=== PATIENT | female | born 1960 | race Caucasian/White ===

== ENCOUNTER → 2016-06-18 | Outpatient (CLI) | payer OTHER ==
[2016-06-18 09:11] LABS: CHOLESTEROL/HDL RATIO 2.3
== END | disposition home or self-care (01) ==
LOC: LAB 08:22
PROVIDERS: ATTEND Nurse Practitioner Obstetrics & Gynecology
DX: E78.5 Hyperlipidemia, unspecified (principal)
CPT/HCPCS: 36415; 80061

== ENCOUNTER → 2016-12-01 | Outpatient (CLI) | payer OTHER ==
--- NOTE | 2016-12-01 15:16 | RAD ---
DATE: 12/01/2016 EXAM: DIGITAL SCREEN BILAT W/CAD HISTORY: Screening COMPARISON: 10/30/2015 This study was interpreted with the benefit of Computerized Aided Detection (CAD). FINDINGS: Breast Density: HETERO The breast parenchyma Is heterogeneiously dense, which could reduce sensitivity of mammography. Breast parenchyma level C there has not been a significant change in the appearance of the breasts compared to the previous exam. IMPRESSION: Benign finding BI-RADS CATEGORY: 2 BENIGN FINDING(S) RECOMMENDED FOLLOW-UP: 12M 12 MONTH FOLLOW-UP PQRS compliance statement: Patient information was entered into a reminder system with a target due date 12/01/2017 for the next mammogram. Mammography is a sensitive method for finding small breast cancers, but it does not detect them all and is not a substitute for careful clinical examination. A negative mammogram does not negate a clinically suspicious finding and should not result in delay in biopsying a clinically suspicious abnormality. "Our facility is accredited by the [employer] Mammography [employer]."
== END | disposition home or self-care (01) ==
LOC: MAMMO 14:33
PROVIDERS: ATTEND Nurse Practitioner Obstetrics & Gynecology
DX: Z12.31 Encounter for screening mammogram for malignant neoplasm of breast (principal)
CPT/HCPCS: G0202; 77067

== ENCOUNTER → 2016-12-23 | Outpatient (CLI) | payer OTHER ==
[2016-12-23 07:49] LABS: BASO % 1 % (0-3); EOS % 2 % (0-3); HEMATOCRIT 42.4 % (36.0-47.0); LYMPH # 1.3 x10^3/uL (1.0-4.8); LYMPH % 35 % (24-48); MEAN CORPUSCULAR HEMOGLOBIN 26 pg (25-35); MEAN CORPUSCULAR HGB CONC 33 g/dL (31-37); MEAN CORPUSCULAR VOLUME 79 fL (79-100); MONO % 10 % (0-9); NEUT % 53 % (31-73); PLATELET COUNT 181 x10^3/uL (140-400); RED BLOOD COUNT 5.35 x10^6/uL (3.50-5.40); RED CELL DISTRIBUTION WIDTH 13.4 % (11.5-14.5)
[2016-12-23 07:52] LABS: WHITE BLOOD COUNT 3.7 x10^3/uL (4.0-11.0)
== END | disposition home or self-care (01) ==
LOC: LAB 07:31
DX: K21.9 Gastro-esophageal reflux disease without esophagitis (principal)
CPT/HCPCS: 36415; 82306; 82607; 82728; 85027

== ENCOUNTER → 2017-01-21 | Day surgery (SDC) | payer OTHER ==
[~2017-01-21] MED LIST: CALC1TAB79 PO; HYDROmorphone 2 MG/ML VIAL IV PRN; IV RINGERS,LACTATED 1000ML 1,000 ML IV SCH; L.AC1CAP6 PO; LIDOCAINE 1% 1 ML SYRINGE. ID PRN; LIDOCAINE 2% PF Vial for OR 5 ML VIAL. ONE; MORPHINE SULFATE 2 MG/ML DISP.SYRIN. IV PRN; ONDANSETRON PF 4 MG/2 ML VIAL. IV PRN; PROCHLORPERAZINE 10 MG/2 ML VIAL. IV PRN; PROPOFOL 60 ML IV ONE; RANI150T2 PO; fentaNYL PF VIAL 100 MCG/2 ML VIAL IV PRN
[2017-01-21 08:12] VITALS: BP 117/68
--- NOTE | 2017-01-24 13:46 | PATHOLOGY ---
PATHOLOGY REPORT * * * * * * * * FINAL DIAGNOSIS: Esophageal biopsies, distal esophagus: - Segments of hyperplastic squamous esophageal mucosa, consistent with reflux esophagitis. COMMENT: Sections of the distal esophageal biopsy reveal segments of hyperplastic squamous esophageal mucosa. There are focal intraepithelial neutrophils and eosinophils. The findings are consistent with reflux esophagitis. There is no evidence of Kim's change, dysplasia, or malignancy. (JPM:pit; 01/24/2017) REPORT ELECTRONICALLY SIGNED BY: Avinash Carolina M.D. DATE/TIME: 01/24/2017 13:46 * * * * * * * * GROSS PATHOLOGY: Received in formalin labeled "Isaias Aguileraaine, distal esophageal biopsies," are multiple segments of lofton soft tissue measuring from less than 0.1 up to 0.2 cm in maximum dimension. The specimen is submitted entirely in cassette A1. (JPM; 01/21/17) INITIAL CPT CODE(S): A; 55806 Professional services performed [place] [address] Technical services performed by [facility] at [address] [place] [address]. SPECIMEN(S) RECEIVED: A.Distal esophagus biopsy CLINICAL HISTORY: GERD, colon screening PATIENT: BELA AGUILERA /AGE: 902/22/1960 (Age: 56) PATIENT #: [id number] ALT CASE #: SPECIMEN COLLECTION DATE: 01/21/2017 SPECIMEN RECEIVED DATE: 01/21/2017 [facility] - [address] [place] [address] - PHONE: [phone] * * * END OF REPORT * * *
== END | disposition home or self-care (01) ==
LOC: ENDOS 05:54
PROVIDERS: ATTEND Internal Medicine Gastroenterology
DX: Z12.11 Encounter for screening for malignant neoplasm of colon (principal); D64.0 Hereditary sideroblastic anemia; K21.0 Gastro-esophageal reflux disease with esophagitis; K29.50 Unspecified chronic gastritis without bleeding
CPT/HCPCS: 43239; 45378; 88305; J2704; J2001

== ENCOUNTER → 2017-03-07 | Outpatient (CLI) | payer OTHER ==
[2017-01-21 08:12] VITALS: BP 117/68
[~2017-03-07] MED LIST changes: -HYDROmorphone 2 MG/ML VIAL IV PRN; -IV RINGERS,LACTATED 1000ML 1,000 ML IV SCH; -LIDOCAINE 1% 1 ML SYRINGE. ID PRN; -LIDOCAINE 2% PF Vial for OR 5 ML VIAL. ONE; -MORPHINE SULFATE 2 MG/ML DISP.SYRIN. IV PRN; -ONDANSETRON PF 4 MG/2 ML VIAL. IV PRN; -PROCHLORPERAZINE 10 MG/2 ML VIAL. IV PRN; -PROPOFOL 60 ML IV ONE; -fentaNYL PF VIAL 100 MCG/2 ML VIAL IV PRN
[2017-03-07 15:14] LABS: BASO % 1 % (0-3); EOS % 2 % (0-3); HEMATOCRIT 42.6 % (36.0-47.0); HEMOGLOBIN 14.1 g/dL (12.0-15.5); LYMPH # 1.1 x10^3/uL (1.0-4.8); LYMPH % 22 % (24-48); MEAN CORPUSCULAR HEMOGLOBIN 27 pg (25-35); MEAN CORPUSCULAR HGB CONC 33 g/dL (31-37); MEAN CORPUSCULAR VOLUME 81 fL (79-100); MONO % 6 % (0-9); NEUT % 70 % (31-73); PLATELET COUNT 181 x10^3/uL (140-400); RED BLOOD COUNT 5.24 x10^6/uL (3.50-5.40)
--- NOTE | 2017-03-08 10:23 | PATHOLOGY ---
PATHOLOGY REPORT * * * * * * * * FINAL DIAGNOSIS: Endometrium, "endometrial biopsy": - Lytic menstrual-type endometrium with glandular and stromal breakdown without any evidence of hyperplasia or malignancy. ([facility]; 03/08/2017) REPORT ELECTRONICALLY SIGNED BY: Geoff Akbar M.D. DATE/TIME: 03/08/2017 10:22 * * * * * * * * GROSS PATHOLOGY: Received in formalin labeled "Bela Aguilera, endometrial biopsy," are several segments of red-lofton membranous tissue admixed with mucoid material measuring 1.5 x 1.5 x 0.3 cm in aggregate dimensions. The specimen is submitted entirely in cassette A1. ([facility]; 03/07/17) INITIAL CPT CODE(S): A; 32816 Professional services performed by [facility] [place] [address] Technical services performed by [facility] at [address] [place] [address]. SPECIMEN(S) RECEIVED: A.Endometrial biopsy CLINICAL HISTORY: Abnormal perimenopausal bleeding PATIENT: BELA AGUILERA /AGE: 902/22/1960 (Age: 57) PATIENT #: [id number] ALT CASE #: SPECIMEN COLLECTION DATE: 03/07/2017 SPECIMEN RECEIVED DATE: 03/07/2017 [facility] - [address] [place] [address] - PHONE: [phone] * * * END OF REPORT * * *
== END | disposition home or self-care (01) ==
LOC: SPEC 14:27
DX: N92.4 Excessive bleeding in the premenopausal period (principal)
CPT/HCPCS: 36415; 85025

== ENCOUNTER → 2018-01-27 | Outpatient (CLI) | payer OTHER ==
[2017-01-21 08:12] VITALS: BP 117/68
[2018-01-27 07:36] LABS: BASO % 1 % (0-3); EOS # 0.1 x10^3/uL (0.0-0.7); EOS % 2 % (0-3); HEMATOCRIT 43.1 % (36.0-47.0); HEMOGLOBIN 14.9 g/dL (12.0-15.5); LYMPH % 26 % (24-48); MEAN CORPUSCULAR HEMOGLOBIN 30 pg (25-35); MEAN CORPUSCULAR HGB CONC 35 g/dL (31-37); MEAN CORPUSCULAR VOLUME 85 fL (79-100); MONO # 0.4 x10^3/uL (0.0-1.1); MONO % 10 % (0-9); NEUT # 2.4 x10^3uL (1.8-7.7); NEUT % 62 % (31-73); PLATELET COUNT 181 x10^3/uL (140-400); RED BLOOD COUNT 5.07 x10^6/uL (3.50-5.40); RED CELL DISTRIBUTION WIDTH 12.5 % (11.5-14.5)
[2018-01-27 08:08] LABS: CREATININE 0.7 mg/dL (0.6-1.0); GFR 86.9; POTASSIUM 3.9 mmol/L (3.5-5.1)
[2018-01-27 08:10] LABS: CHOLESTEROL/HDL RATIO 2.7
== END | disposition home or self-care (01) ==
LOC: LAB 07:01
PROVIDERS: ATTEND Family Medicine
DX: Z01.419 Encounter for gynecological examination (general) (routine) without abnormal findings (principal); D50.0 Iron deficiency anemia secondary to blood loss (chronic); E78.00 Pure hypercholesterolemia, unspecified; Z88.8 Allergy status to other drugs, medicaments and biological substances
CPT/HCPCS: 36415; 80048; 80061; 84443; 85025

== ENCOUNTER 2019-06-12 17:31 | Emergency (ER) | payer OTHER ==
[~2019-06-12] VITALS: Ht 154.9 cm; Wt 46.7 kg
[2019-06-12 17:42] VITALS: BP 113/72
--- NOTE | 2019-06-12 18:08 | PHYS DOC ---
Past Medical History Past Medical History: No Pertinent History (SILVERIO JOSEPH APRN) Past Surgical History: No Surgical History (SILVERIO JOSEPH APRN) Alcohol Use: None Drug Use: None (SILVERIO JOSEPH APRN) Attending Signature I have participated in the care of this patient and I have reviewed and agree with all pertinent clinical information above including history, exam, and recommendations. (CATHY WRIGHT MD) Adult General Chief Complaint Chief Complaint: FEVER HPI HPI Patient is a 59 year old female who presents to the ED today with a productive cough, nasal congestion, bilateral ear pain, and a fever that began 3 days ago. Patient reports the has similar symptoms (SILVERIO JOSEPH APRN) Review of Systems Review of Systems Constitutional: Reports fever Eyes: Denies change in visual acuity, redness, or eye pain [] HENT: Reports nasal congestion and bilateral ear pain, denies sore throat [] Respiratory: Reports cough, denies shortness of breath [] Cardiovascular: No additional information not addressed in HPI [] GI: Denies abdominal pain, nausea, vomiting, bloody stools or diarrhea [] : Denies dysuria or hematuria [] Musculoskeletal: Denies back pain or joint pain [] Integument: Denies rash or skin lesions [] Neurologic: Denies headache, focal weakness or sensory changes [] All other systems were reviewed and found to be within normal limits, except as documented in this note. (SILVERIO JOSEPH APRN) Allergies Allergies Allergies Coded Allergies Type Severity Reaction Last Updated Verified No Known Drug Allergies 01/21/17 No (CATHY WRIGHT MD) Physical Exam Physical Exam Constitutional: Well developed, well nourished, no acute distress, non-toxic appearance. [] HENT: Normocephalic, atraumatic, bilateral external ears normal, oropharynx moist, no oral exudates, nose normal. [] Eyes: PERRLA, EOMI, conjunctiva normal, no discharge. [] Neck: Normal range of motion, no tenderness, supple, no stridor. [] Cardiovascular:Heart rate regular rhythm, no murmur [] Lungs & Thorax: Bilateral breath sounds clear to auscultation [] Abdomen: Bowel sounds normal, soft, no tenderness, no masses, no pulsatile masses. [] Skin: Warm, dry, no erythema, no rash. [] Back: No tenderness, no CVA tenderness. [] Extremities: No tenderness, no cyanosis, no clubbing, ROM intact, no edema. [] Neurologic: Alert and oriented X 3, normal motor function, normal sensory function, no focal deficits noted. [] Psychologic: Affect normal, judgement normal, mood normal. [] (SILVERIO JOSEPH APRN) Current Patient Data Vital Signs Vital Signs Date Time Temp Pulse Resp B/P (MAP) Pulse Ox O2 Delivery O2 Flow Rate FiO2 06/12/19 17:42 98.9 89 14 113/72 (86) 97 Room Air 98.9 (CATHY WRIGHT MD) Lab Values Laboratory Tests Test 06/12/19 17:44 Influenza Type A Antigen Positive (NEGATIVE) Influenza Type B Antigen Negative (NEGATIVE) (CATHY WRIGHT MD) Lab Values Laboratory Tests Test 06/12/19 17:44 Influenza Type A Antigen Positive (NEGATIVE) Influenza Type B Antigen Negative (NEGATIVE) (SILVERIO JOSEPH APRN) EKG EKG [] (SILVERIO JOSEPH APRN) Radiology/Procedures Radiology/Procedures [] (SILVERIO JOSEPH APRN) Course & Med Decision Making Course & Med Decision Making Pertinent Labs and Imaging studies reviewed. (See chart for details) This is a 59-year-old female patient presented to the ED today with productive cough, nasal congestion and bilateral ear pain, fever, symptoms began 3 days ago. (SILVERIO JOSEPH APRN) Dragon Disclaimer Dragon Disclaimer This electronic medical record was generated, in whole or in part, using a voice recognition dictation system. (SILVERIO JOSEPH APRN) Departure Departure Impression: Primary Impression: Cough Additional Impressions: Influenza A Fever Disposition: 01 HOME, SELF-CARE Condition: STABLE Referrals: Rock ARRIOLA MD (PCP) follow up with your doctor in 1-2 weeks Patient Instructions: Influenza A (H1N1) Additional Instructions: You tested positive for influenza A. Please take Tylenol/Motrin as needed for pain or fever. Please rest, push fluids, maintain good hygiene and follow-up with your doctor in 1-2 weeks Scripts Benzonatate (TESSALON PERLE) 100 Mg Capsule 1 CAP PO TID, #30 CAP Prov: SILVERIO JOSEPH APRN 06/12/19 Problem Qualifiers Additional Impressions: Fever Fever type: unspecified Qualified Codes: R50.9 - Fever, unspecified SILVERIO JOSEPH MINOO Jun 12, 2019 18:08 CATHY WRIGHT MD Jun 13, 2019 19:18
[2019-06-12 18:26] LABS: INFLUENZA A PATIENT POSITIVE (NEGATIVE); INFLUENZA B PATIENT NEGATIVE (NEGATIVE)
[2019-06-12] MEDS ORDERED: BENZ100C PO (18:50)
--- NOTE | 2019-06-12 20:52 | RAD ---
CHEST PA LATERAL Technique: PA and lateral views of the chest were obtained. Clinical History: Comparison: None. Findings: The heart and pulmonary vasculature appear within normal limits. There is vague patchy opacities in the lung bases. There is blunting of costophrenic angles. Impression: Vague basal infiltrates and tiny effusions could be early pneumonia. Electronically signed by: Esau Bender III, MD (06/12/2019 8:48 PM) [facility]
== END 2019-06-12 18:53 | disposition home or self-care (01) ==
LOC: ER 17:31
DX: J10.1 Influenza due to other identified influenza virus with other respiratory manifestations (principal); H92.03 Otalgia, bilateral; R50.9 Fever, unspecified; R05 Cough
CPT/HCPCS: 71046; 87804; 99285

== ENCOUNTER → 2020-07-23 | Outpatient (CLI) | payer OTHER ==
[~2020-07-23] MED LIST changes: +BENZ100C PO
--- NOTE | 2020-07-23 20:11 | RAD ---
DATE: 07/23/2020 EXAM: MAMMO YARITZA SCREENING BILATERAL HISTORY: Routine screening COMPARISON: 12/01/2016, 10/30/2015, 10/28/2014, 09/01/2011 This study was interpreted with the benefit of Computerized Aided Detection (CAD). Breast Density: DENSE The breast parenchyma is dense, which could reduce the sensitivity of mammography. Breast parenchyma level density D. FINDINGS: No suspicious mass, calcification, or architectural distortion in either breast. IMPRESSION: No evidence of malignancy. BI-RADS CATEGORY: 1 NEGATIVE RECOMMENDED FOLLOW-UP: 12M 12 MONTH FOLLOW-UP PQRS compliance statement: Patient information was entered into a reminder system with a target due date for the next mammogram. Mammography is a sensitive method for finding small breast cancers, but it does not detect them all and is not a substitute for careful clinical examination. A negative mammogram does not negate a clinically suspicious finding and should not result in delay in biopsying a clinically suspicious abnormality. "Our facility is accredited by the [employer] Mammography Program."
== END ==
LOC: MAMMO 11:01
PROVIDERS: ATTEND Obstetrics & Gynecology
DX: Z12.31 Encounter for screening mammogram for malignant neoplasm of breast (principal)
CPT/HCPCS: 77063; 77067

== ENCOUNTER → 2020-08-22 | Outpatient (CLI) | payer OTHER ==
[2020-08-22 07:51] LABS: BASO % 1 % (0-3); EOS # 0.1 x10^3/uL (0.0-0.7); EOS % 2 % (0-3); HEMATOCRIT 44.7 % (36.0-47.0); HEMOGLOBIN 15.2 g/dL (12.0-15.5); LYMPH # 1.1 x10^3/uL (1.0-4.8); LYMPH % 31 % (24-48); MEAN CORPUSCULAR HEMOGLOBIN 28 pg (25-35); MEAN CORPUSCULAR HGB CONC 34 g/dL (31-37); MEAN CORPUSCULAR VOLUME 83 fL (79-100); MONO # 0.3 x10^3/uL (0.0-1.1); MONO % 9 % (0-9); NEUT % 57 % (31-73); PLATELET COUNT 162 x10^3/uL (140-400); RED BLOOD COUNT 5.39 x10^6/uL (3.50-5.40); RED CELL DISTRIBUTION WIDTH 12.5 % (11.5-14.5); WHITE BLOOD COUNT 3.6 x10^3/uL (4.0-11.0)
[2020-08-22 08:04] LABS: ALBUMIN 4.1 g/dL (3.4-5.0); ALBUMIN/GLOBULIN RATIO 1.2 (1.0-1.7); CHOLESTEROL/HDL RATIO 2.8; CREATININE 0.7 mg/dL (0.6-1.0); GFR 85.9; POTASSIUM 3.9 mmol/L (3.5-5.1); TOTAL BILIRUBIN 0.6 mg/dL (0.2-1.0); TOTAL PROTEIN 7.4 g/dL (6.4-8.2)
[2020-08-23 00:08] LABS: HEMOGLOBIN A1C 5.2 % (4.8-5.6)
== END ==
LOC: LAB 07:21
PROVIDERS: ATTEND Obstetrics & Gynecology
DX: Z01.419 Encounter for gynecological examination (general) (routine) without abnormal findings (principal)
CPT/HCPCS: 36415; 80053; 80061; 83036; 84443; 85025

== ENCOUNTER → 2021-01-07 | Outpatient (CLI) | payer OTHER ==
--- NOTE | 2021-01-07 16:00 | KCIC ---
CT SCREENING FOR CORONARY ARTERY History: Reason: Hyperlipidemia, no family hx. heart disease. / Spl. Instructions: / History: Technique: With retrospective electrocardiogram gating axial reconstructed noncontrast images of the chest at the level of the coronary arteries was performed. Images were post processed on workstation and calcium score calculated using the modified Agatston Janowitz protocol. Exposure: One or more of the following individualized dose reduction techniques were utilized for thi s examination: 1. Automated exposure control 2. Adjustment of the mA and/or kV according to patient size 3. Use of iterative reconstruction technique. Comparison: None Findings: Total coronary calcium score is 0. There is no plaque burden and low cardiovascular disease risk. This is based on the calcium score of 0 of the left main coronary artery, 0 of the left anteri or descending artery, score of 0 of the left circumflex artery and score of 0 of the right coronary a rtery. Noncoronary findings: Right hepatic lobe hypodensity measures 1.5 x 1.1 cm partially imaged, likely cyst. 3 mm right middle lobe pleural-based nodule (series 6 image 16). IMPRESSION: 1. Low cardiovascular disease risk. Calcium score 0. 2. Small right middle lobe pulmonary nodule. Recommend one-year follow-up if high risk. 3. Right hepatic lobe hypodensity, likely cyst. Electronically signed by: Pawan Jackson DO (01/07/2021 3:57 PM) [id number]
== END ==
LOC: KCIC CT 12:32
PROVIDERS: ATTEND Family Medicine
DX: I25.10 Atherosclerotic heart disease of native coronary artery without angina pectoris (principal); R91.1 Solitary pulmonary nodule; E78.49 Other hyperlipidemia
CPT/HCPCS: 75571

== ENCOUNTER → 2021-04-29 | Outpatient (CLI) | payer OTHER ==
--- NOTE | 2021-04-29 11:43 | KCIC ---
EXAM: Pelvic sonogram. HISTORY: Postmenopausal spotting. TECHNIQUE: Transabdominal and transvaginal sonographic imaging of the pelvis was performed. COMPARISON: 11/18/2015. FINDINGS: The uterus measures 7.2 x 4.8 x 3.7 cm. The endometrial stripe measures 5.3 mm in thickness . There is a 9 mm rounded hyperechoic lesion within the uterine fundus which appears to abut the endo metrium. There is a 2.2 cm fibroid within the superior uterine fundus. The ovaries are normal in size and demonstrate normal blood flow. There is a 1.3 cm cyst within the right ovary. There are nabothia n cysts within the cervix. IMPRESSION: 1. Upper limits of normal endometrial stripe thickness for the postmenopausal status of the patient. 2. 2.2 cm superior uterine fibroid. 3. 9 mm rounded hyperechoic lesion within the uterine fundus abutting the endometrium. This may be a uterine fibroid. The imaging appearance does not favor a polyp or malignancy. However, short-term son ographic follow-up or hysteroscopy may be indicated in this patient with reported postmenopausal blee ding. 4. 1.3 cm right ovarian cyst. Short-term sonographic follow-up and possible correlation with a CA-125 tumor marker level is recommended. 5. Nabothian cysts within the cervix. Electronically signed by: Ольга Valle MD (04/29/2021 11:41 AM) [id number]
== END ==
LOC: KCIC US 10:50
PROVIDERS: ATTEND Obstetrics & Gynecology
DX: D25.9 Leiomyoma of uterus, unspecified (principal); N88.8 Other specified noninflammatory disorders of cervix uteri; N83.201 Unspecified ovarian cyst, right side; N95.0 Postmenopausal bleeding
CPT/HCPCS: 76830; 76856

== ENCOUNTER → 2021-10-08 | Outpatient (CLI) | payer OTHER ==
--- NOTE | 2021-10-08 16:11 | RAD ---
Bilateral digital screening 2-D and 3-D (tomosynthesis) mammogram: Reason for examination: Routine screening. Comparison is made to previous mammogram from 07/23/2020. Bilateral mammograms in CC and oblique projections were obtained with 2-D imaging and 3-D tomosynthes is imaging and reviewed on the workstation. Interpretation was made with the benefit of CAD. Findings: Breast density: Category D. The breasts are extremely dense which lowers sensitivity of mammography. There are no suspicious masses, malignant appearing calcifications or architectural distortion. Impression: No evidence of malignancy. The breasts are extremely dense which lowers sensitivity of mammography. ASSESSMENT: BI-RADS 1. Negative. Recommendations: Routine screening mammograms. This patient's information has been entered into a reminder system for the patient to be notified wit h the results of her examination and a target date for the next mammogram. Your patient's mammogram demonstrates that she has dense breast tissue (breast density category C or D), which could hide abnormalities, and if she has other risk factors for breast cancer that have bee n identified, she might benefit from supplemental screening tests that may be suggested by you as her ordering physician. Dense breast tissue, in and of itself, is a relatively common condition. Therefo re, this information is not provided to cause undue concern, but rather to raise your awareness and t o promote discussion with your patient regarding the presence of other risk factors, in addition to d ense breast tissue. Electronically signed by: Merle Hedrick MD (10/08/2021 4:08 PM) [id number]
== END ==
LOC: MAMMO 14:52
PROVIDERS: ATTEND Family Medicine
DX: Z12.31 Encounter for screening mammogram for malignant neoplasm of breast (principal)
CPT/HCPCS: 77063; 77067